=== PATIENT | male | born 2000 | race Caucasian/White ===

== ENCOUNTER 2018-06-30 15:33 | Emergency (ER) | payer OTHER ==
--- NOTE | 2018-06-30 16:12 | RAD ---
FOUR VIEWS RIGHT KNEE: Comparison: None. History: Right knee pain after sitting. FINDINGS: Four views right knee shows no evidence of acute fracture or dislocation. No degenerative changes are seen. No knee effusion is present. IMPRESSION: Unremarkable exam. POS: CET
[2018-06-30] MEDS ORDERED: Ketorolac Tromethamine 60 MG/2 ML VIAL ONE (16:29)
== END 2018-06-30 16:44 | disposition home or self-care (01) ==
LOC: ERS 15:33
DX: S76.311A Strain of muscle, fascia and tendon of the posterior muscle group at thigh level, right thigh, initial encounter (principal); F17.210 Nicotine dependence, cigarettes, uncomplicated; X58.XXXA Exposure to other specified factors, initial encounter
CPT/HCPCS: 96372; J1885